=== PATIENT | male | born 1970 | race African-American/Black ===

== ENCOUNTER 2019-03-10 08:27 | Emergency (ER) | payer MEDICAID ==
[~2019-03-10] VITALS: Ht 195.6 cm; Wt 99.3 kg
[2019-03-10 08:36] VITALS: BP 128/77
== END 2019-03-10 10:03 | disposition home or self-care (01) ==
LOC: ED 08:27
DX: J98.01 Acute bronchospasm (principal); F12.10 Cannabis abuse, uncomplicated

== ENCOUNTER 2019-04-19 10:12 | Emergency (ER) | payer MEDICAID ==
[~2019-04-19] VITALS: Ht 198.1 cm; Wt 103.0 kg
[2019-04-19 10:23] VITALS: Ht 198.1 cm; Wt 103.0 kg
[2019-04-19 13:00] VITALS: BP 145/79
== END 2019-04-19 13:00 | disposition home or self-care (01) ==
LOC: ED 10:12
DX: J45.909 Unspecified asthma, uncomplicated (principal); Z76.0 Encounter for issue of repeat prescription; Z87.891 Personal history of nicotine dependence

== ENCOUNTER 2019-05-13 02:04 | Emergency (ER) | payer MEDICAID ==
[~2019-05-13] VITALS: Ht 198.1 cm; Wt 103.4 kg
[2019-05-13 02:07] VITALS: Ht 198.1 cm; Wt 103.4 kg
[2019-05-13 03:55] VITALS: BP 134/46
== END 2019-05-13 03:55 | disposition home or self-care (01) ==
LOC: ED 02:04
DX: R06.00 Dyspnea, unspecified (principal); F41.9 Anxiety disorder, unspecified; J45.909 Unspecified asthma, uncomplicated
CPT/HCPCS: J7512; J7613; J7644; Q0092